=== PATIENT | male | born 1995 ===

== ENCOUNTER 2020-07-23 | Outpatient (CLI) | payer OTHER | END 2020-07-23 08:45 | disposition home or self-care (01) | LOC: PPH VACUNA | DX: Z23 Encounter for immunization (principal) ==

== ENCOUNTER 2020-08-13 08:20 | Outpatient (CLI) | payer OTHER | END 2020-08-13 08:21 | disposition home or self-care (01) | LOC: PPH VACUNA 08:20 | DX: Z23 Encounter for immunization (principal) ==